=== PATIENT | female | born 1965 ===

== ENCOUNTER 2017-11-01 09:26 | Day surgery (SDC) | payer MEDICAID ==
[2017-11-01 09:54] VITALS: O2SAT 100
[2017-11-01] MEDS ORDERED: Simethicone 40 mg/0.6 ml Liquid (30 ml) ONE (10:04)
[2017-11-01] MEDS ORDERED: Midazolam 2 MG/2 ML VIAL ONE (10:19)
[2017-11-01] MEDS ORDERED: Lidocaine Hydrochloride 5 ML INJ ONE (10:19)
[2017-11-01] MEDS ORDERED: Propofol 10 mg/ml Inj (20 ML) ONE ×3 (10:19→10:50)
[2017-11-01] MEDS ORDERED: Esmolol 100 mg/10ml Inj IV ONE (10:43)
[2017-11-01 11:25] VITALS: TEMP 97.1
[2017-11-01 13:17] VITALS: BP 122/87; RESP 14
[2017-11-01 13:27] VITALS: PULSE 75
== END 2017-11-01 12:15 | disposition home or self-care (01) ==
LOC: C.ENDO 09:26
PROVIDERS: ATTEND Internal Medicine Gastroenterology
DX: Z12.11 Encounter for screening for malignant neoplasm of colon (principal); R10.13 Epigastric pain; K64.8 Other hemorrhoids; K57.30 Diverticulosis of large intestine without perforation or abscess without bleeding; K31.9 Disease of stomach and duodenum, unspecified; K29.70 Gastritis, unspecified, without bleeding; E78.5 Hyperlipidemia, unspecified; Z79.899 Other long term (current) drug therapy
CPT/HCPCS: 43239; 45378; 84703; 88305; J2250; J2704; J7040

== ENCOUNTER 2018-08-07 12:52 | Emergency (ER) | payer MEDICAID ==
[2018-08-07 12:57] VITALS: BMI 31.5
[2018-08-07 13:00] VITALS: BP 113/82; PULSE 110; RESP 18; TEMP 97.9; O2SAT 97
[2018-08-07] MEDS ORDERED: Lidocaine 1% 20 MG/2 ML PF AMP SC ONE (13:17)
--- NOTE | 2018-08-07 13:22 | C.PDOC ---
History Of Present Illness 53 year old female presents to ED after sustaining a laceration to her left fifth finger earlier today with a staple wire. Patient denies any other injuries. Chief Complaint (Nursing): Finger,Hand,&Wrist History Per: Patient History/Exam Limitations: no limitations Onset/Duration Of Symptoms: Hrs Current Symptoms Are (Timing): Still Present Past Medical History Reviewed: Historical Data, Nursing Documentation, Vital Signs Vital Signs: Last Vital Signs Temp 97.9 F 08/07/18 12:57 Pulse 110 H 08/07/18 12:57 Resp 18 08/07/18 12:57 BP 113/82 08/07/18 12:57 Pulse Ox 97 08/07/18 12:57 - Medical History PMH: Gastritis, Hypercholesterolemia, Migraine Denies: Chronic Kidney Disease Surgical History: No Surg Hx - [facility] Procedures TETANUS TOXOID ADMINIST (12/10/13) Family History: States: No Known Family Hx - Social History Hx Tobacco Use: No Hx Alcohol Use: No Hx Substance Use: No - Immunization History Hx Tetanus Toxoid Vaccination: Yes (2015) Hx Influenza Vaccination: No Hx Pneumococcal Vaccination: No Review Of Systems Except As Marked, All Systems Reviewed And Found Negative. Skin: Positive for: Other (Laceration to L fifth finger) Physical Exam - Physical Exam Appears: Non-toxic, No Acute Distress Skin: Warm, Dry Head: Atraumatic, Normacephalic Eye(s): bilateral: Normal Inspection Oral Mucosa: Moist Neck: Supple Chest: Symmetrical Cardiovascular: Rhythm Regular, No Murmur Respiratory: Normal Breath Sounds, No Rales, No Rhonchi, No Wheezing Extremity: Bilateral: Normal Color And Temperature, Normal ROM Neurological/Psych: Oriented x3, Normal Speech, Normal Motor, Normal Sensation ED Course And Treatment O2 Sat by Pulse Oximetry: 97 (RA) Pulse Ox Interpretation: Normal Procedure: Wound Repair - Time Performed Time Performed: 13:21 - Performed by Performed by: Attending Physician - Location Finger:: Left, Little Dimensions Length cm: 1cm - Anesthetic Technique Local/Regional Anesthetic:: Lidocaine 1% - Debris Debris:: None - Wound repair method Sutures:: # (3), Type (Vicryl 5-0) Disposition Counseled Patient/Family Regarding: Diagnosis, Need For Followup - Disposition Referrals: Surekha Bacon [Medical Doctor] - Disposition: HOME/ ROUTINE Disposition Time: 13:22 Condition: IMPROVED Prescriptions: Ibuprofen [Motrin] 600 mg PO TID #20 tab Instructions: Laceration Repair, Laceration Repair With Stitches (DC) Forms: [facility] ([place]), General Discharge Instructions - POA Present On Arrival: None Location Of Wound: Finger - Clinical Impression Clinical Impression: Finger laceration - Scribe Statement The provider has reviewed the documentation as recorded by the Beckiibkellie Diaz Provider Attestation: All medical record entries made by the Beckiibe were at my direction and personally dictated by me. I have reviewed the chart and agree that the record accurately reflects my personal performance of the history, physical exam, medical decision making, and the department course for this patient. I have also personally directed, reviewed, and agree with the discharge instructions and disposition.
--- NOTE | 2018-08-07 13:22 | C.PDOC ---
History Of Present Illness 53 year old female presents to ED after sustaining a laceration to her left fifth finger earlier today with a staple wire. Patient denies any other injuries. Chief Complaint (Nursing): Finger,Hand,&Wrist History Per: Patient History/Exam Limitations: no limitations Onset/Duration Of Symptoms: Hrs Current Symptoms Are (Timing): Still Present Past Medical History Reviewed: Historical Data, Nursing Documentation, Vital Signs Vital Signs: Last Vital Signs Temp 97.9 F 08/07/18 12:57 Pulse 110 H 08/07/18 12:57 Resp 18 08/07/18 12:57 BP 113/82 08/07/18 12:57 Pulse Ox 97 08/07/18 12:57 - Medical History PMH: Gastritis, Hypercholesterolemia, Migraine Denies: Chronic Kidney Disease Surgical History: No Surg Hx - [facility] Procedures TETANUS TOXOID ADMINIST (12/10/13) Family History: States: No Known Family Hx - Social History Hx Tobacco Use: No Hx Alcohol Use: No Hx Substance Use: No - Immunization History Hx Tetanus Toxoid Vaccination: Yes (2015) Hx Influenza Vaccination: No Hx Pneumococcal Vaccination: No Review Of Systems Except As Marked, All Systems Reviewed And Found Negative. Skin: Positive for: Other (Laceration to L fifth finger) Physical Exam - Physical Exam Appears: Non-toxic, No Acute Distress Skin: Warm, Dry, Other (1cm laceration to distal left finger) Head: Atraumatic, Normacephalic Eye(s): bilateral: Normal Inspection Oral Mucosa: Moist Neck: Supple Chest: Symmetrical Cardiovascular: Rhythm Regular, No Murmur Respiratory: Normal Breath Sounds, No Rales, No Rhonchi, No Wheezing Gastrointestinal/Abdominal: Normal Exam Extremity: Bilateral: Normal Color And Temperature, Normal ROM Neurological/Psych: Oriented x3, Normal Speech, Normal Motor, Normal Sensation ED Course And Treatment O2 Sat by Pulse Oximetry: 97 (RA) Pulse Ox Interpretation: Normal Procedure: Wound Repair - Time Performed Time Performed: 13:21 - Location Location:: Left, Distal, Hand Finger:: Left, Little Dimensions Length cm: 1cm - Anesthetic Technique Local/Regional Anesthetic:: Lidocaine 1% - Debris Debris:: None - Wound repair method Sutures:: # (3), Type (Vicryl 5-0) Disposition - Disposition - Scribe Statement The provider has reviewed the documentation as recorded by the Galo Diaz Provider Attestation: All medical record entries made by the Galo were at my direction and personally dictated by me. I have reviewed the chart and agree that the record accurately reflects my personal performance of the history, physical exam, medical decision making, and the department course for this patient. I have also personally directed, reviewed, and agree with the discharge instructions and disposition.
== END 2018-08-07 13:30 | disposition home or self-care (01) ==
LOC: C.ER 12:52
DX: S61.217A Laceration without foreign body of left little finger without damage to nail, initial encounter (principal); W45.8XXA Other foreign body or object entering through skin, initial encounter; Y92.9 Unspecified place or not applicable